=== PATIENT | male | born 1950 | race Caucasian/White ===

== ENCOUNTER 2021-10-16 06:51 | Emergency (ER) | payer OTHER ==
[~2021-10-16] VITALS: Wt 83.9 kg
[2021-10-16 09:18] LABS: BASO % 0.3 % (0.0-1.0); EOS % 0.1 % (1.0-4.0); HEMATOCRIT 40.4 % (42.0-52.0); LYMPH # 1.2 10*3/uL (1.3-4.4); LYMPH % 11.3 % (27.0-41.0); MEAN CELL VOLUME 92.9 fl (80.0-94.0); MEAN CORPUSCULAR HGB 31.3 pg (27.0-31.0); MEAN CORPUSCULAR HGB CONC 33.7 g/dl (33.0-37.0); MEAN PLATELET VOLUME 8.6 fl (9.6-12.3); MONO # 0.7 10*3/uL (0.1-1.0); MONO % 6.5 % (3.0-9.0); NEUT # 8.5 10*3/uL (2.3-7.9); NEUT % 81.5 % (47.0-73.0); PLATELET COUNT AUTOMATED 244 10*3/uL (130-400); RED BLOOD COUNT 4.35 10*6/uL (4.50-5.90); RED CELL DISTRI WIDTH 13.3 % (0-14.5); WHITE BLOOD COUNT 10.4 10*3/uL (4.8-10.8)
[2021-10-16 09:38] LABS: ALKALINE PHOSPHATASE 122 U/L (45-117); BUN 26 mg/dl (7-24); CHLORIDE 105 mmol/L (98-107); CREATININE 0.79 mg/dL (0.70-1.30); POTASSIUM 4.5 mmol/L (3.5-5.1); SGOT/AST 12 IU/L (3-35); SGPT/ALT 16 U/L (12-78); SODIUM 137 mmol/L (136-145); URIC ACID 5.2 mg/dL (3.5-7.2)
[2021-10-16] MEDS ORDERED: PREDNISONE50 MG PO (15:02)
[2021-10-16] MEDS ORDERED: HYDROCODONE-AC1 EAC1 PO (15:06)
== END 2021-10-16 15:22 | disposition home or self-care (01) ==
LOC: ED 06:51
PROVIDERS: Emergency Medicine
DX: M65.88 Other synovitis and tenosynovitis, other site (principal)